=== PATIENT | female | born 1975 | race African-American/Black ===

== ENCOUNTER → 2024-09-24 | Outpatient (CLI) | payer BC ==
[~2024-09-24] VITALS: Ht 177.8 cm; Wt 127.0 kg
[2024-09-24] MEDS: ADENOSINE 107 MG in GIVE UN-DILUTED 0 ML IV STA (10:07)
--- NOTE | 2024-09-24 14:47 | DVHSR ---
APPROVED REPORT Exam: Nuclear Stress Test Indication: Chest pain Stress Tech: Prerna Portillo Ht: 5 ft 10 in Wt: 280 lbs BSA: 2.41 m2 BMI: 40.17 Medical History Medical History: HTN, Obesity , Hyperlipidemia Allergies: No known drug allergies Stress Test Details Stress Test: Pharmacological stress testing performed using 107 mg of Adenosine Reason for pharmacologic stress test: CP. HR Resting HR: 69 bpmMax Heart Rate (APMHR): 174.832740 bpm Max HR Achieved: 115 bpmTarget HR (85% APMHR): 147.991886 bpm % of APMHR: 66.09 Recovery HR: 73 bpm BP Resting BP: 150/75 mmHg Recovery BP: 130/60 mmHg ECG Resting ECG: Sinus Rhythm Clinical Reason for Termination: Completed protocol Nurse Comments Outpatient received from Nuclear Medicine. Patient is A&O x4 and on room air, for VS please see stre ss test assessment documentation. Connected to personnel monitor with VS WNL. See cardio-neuro proced ural notes for addtional details. LT FA 22g AND RAC 22G PIVs flush well. Reviewed POC, patient verb alized understanding, and consents to test. Adenosine stress test performed per protocol. test and turn up technician administered Cardiolite. Pt. to lerated well and all vitals returned to baseline. Patient transferred back to Nuclear Medicine with tech in stable condition. Stress ECG Conclusion marked anterior and inferior ischemia noted normal lvef 60% ecg portion shows PVCs with SR on stress portion abnormal stress showing multiple areas of ischemia NM EXAM: Myocardial Perfusion REST/STRESS Imaging Protocol: Rest Tc-99m/Stress Tc-99m 1 day Resting Data Rest SPECT myocardial perfusion imaging was performed in supine position 60 minutes following the int ravenous injection of 14.5 mCi of Tc-99m Sestamibi. Time of rest injection: 0900 Time of rest imagin Administration Route: IV Administration Site: Right Arm Pharmacologic Stress Pharmacologic stress test was performed by injecting Adenosine mg IV push followed by the intravenou s injection of 34 mCi of Tc-99m Sestamibi. Time of stress injection: 1010 Time of stress imagin Administration Route: IV Administration Site: Left Wrist Gated Stress SPECT was performed 60 minutes after stress injection. The images were gated to evaluate regional wall motion and calculate left ventricular ejection fracti on. Stress only was performed in the Supine position. Nuclear Conclusion Clinical Findings: positive for ischemia Nuclear Findings: positive for ischemia marked anterior and inferior ischemia noted normal lvef 60% ecg portion shows PVCs with SR on stress portion abnormal stress showing multiple areas of ischemia
== END | disposition home or self-care (01) ==
LOC: XYW 08:24
PROVIDERS: ATTEND Internal Medicine
DX: I25.9 Chronic ischemic heart disease, unspecified (principal); R07.9 Chest pain, unspecified
CPT/HCPCS: 78452; 93017; A9500; J0153

== ENCOUNTER 2025-03-13 06:46 | Day surgery (SDC) | payer BC ==
[2025-03-11 10:58] LABS: Hematocrit 40.0 % (36.0-46.0); Hemoglobin 13.3 g/dL (12.2-16.2); Mean Corpuscular Hemoglobin 28.9 pg (28.0-32.0); Mean Corpuscular Volume 86.9 fL (80.0-100.0); Nucleated Red Blood Cells % 0.0 %
[2025-03-11 11:13] LABS: Alanine Aminotransferase 19 U/L (7-40); Albumin 4.1 g/dL (3.2-4.8); Alkaline Phosphatase 99 U/L (46-116); Anion Gap 8 (5-15); BUN/Creatinine Ratio 10.7 (10.0-20.0); Calcium 9.4 mg/dL (8.7-10.4); Carbon Dioxide 28 mmol/L (20-31); Chloride 105 mmol/L (98-107); Glucose 83 mg/dL (74-106); Potassium 3.8 mmol/L (3.5-5.1); Sodium 141 mmol/L (136-145); Total Protein 6.7 g/dL (5.7-8.2)
[2025-03-11 11:14] LABS: Bilirubin, Total 0.4 mg/dL (0.2-1.0)
[2025-03-11 11:16] LABS: Blood Urea Nitrogen 8 mg/dL (9-23); INR 1.01 (0.9-1.15); Partial Thromboplastin Time 28.8 SEC (24.5-34.5); Prothrombin Time 10.7 sec (9.3-11.8)
[~2025-03-13] VITALS: Ht 177.8 cm; Wt 133.4 kg
[~2025-03-13 06:46] MED LIST: ASPI81CH74 PO; ATOR20TA PO; CEPH500C PO; IBUP-1456 PO; LISI30TA8 PO
[2025-03-13] MEDS: IODIXANOL 320MG/ML 100ML BTL IV ONE (07:54)
[2025-03-13] MEDS: ANGIOMAX 250 MG VIAL IV ONE (08:19)
[2025-03-13] MEDS: MIDAZOLAM HCL 2MG/2ML 2ml VIAL (1mg/ml) ONE (08:19)
[2025-03-13] MEDS: VERAPAMIL 2.5MG/ML INJ 2ML VIAL IV ONE (08:19)
[2025-03-13] MEDS: SODIUM CHL 0.9% 0 ML ONE (08:19)
[2025-03-13] MEDS: fentaNYL CITRATE 100 MCG/2 ML VL ONE (08:19)
[2025-03-13] MEDS: HEPARIN SODIUM (PORCINE) 5000 UNITS/ML 1ML VIAL ONE (08:19)
[2025-03-13] MEDS: LIDOCAINE 2%HCL (LOCAL ANESTH.) INJ 20ML MDV ONE (08:20)
[2025-03-13 09:57] VITALS: BP 126/81; PULSE 70; RESP 17; TEMP 98.1; O2SAT 97
--- NOTE | 2025-03-13 10:11 | DVHOP2 ---
Operative Report - 2 Report Details Date: 03/13/25 Preop Diagnosis: CAD Postop Diagnosis: normal coronaries Surgeon: Celeste Mon MD Anesthesiologist: Conscious sedation Anesthesia: Mac, Local Consent: The patient was informed of the risks and benefits of the procedure. These include but are not limited to complications of anesthesia, postoperative infection, incomplete relief of symptoms, recurrence of symptoms, damage to blood vessels, nerves and tendons, deep venous thrombosis, pulmonary embolism and possible need for repeat surgery in the future. Complications: No complications Findings: Normal coronaries Indications for Surgery: Chest pain abnormal stress test Name of Procedure Performed Left heart catheterization. Bilateral cine coronary angiography. Left ventriculography. Procedure Details Procedure Details: Prior local anesthesia with 2% lidocaine to the right wrist and full informed consent obtained the patient was prepped and draped in usual fashion followed by placement of the six Malay sheath into the radial artery followed by check these catheters cannulate both right and left coronary ostia. A multipurpose catheter was used for ventriculography without complications Hemodynamics: Aortic blood pressure was 110/70. End-diastolic pressure was 16. There was no gradient across the aortic valve on pullback. Coronary anatomy. RCA is a large normal vessel. The PDA and posterolateral branches are normal. Left main is large and normal. Left anterior descending is a large vessel with no stenosis in his proximal mid or distal segment. The circumflex is large and free of significant disease. Marginals are normal. Ventriculography shows an EF of about 65% . Impression: Normal left ventricular end-diastolic pressure at rest with normal ejection fraction. No coronary artery disease. Recommendations: Medical therapy is warranted continue with risk factor modification. End of dictation Condition Good Disposition Home Date of Service: Mar 13, 2025 Billing Provider: CELESTE MON Sr., MD Cardiology Common Codes: 47150-LUWEBCN INP/OBS CARE (High) Cardiology Procedure Codes: 83557-FIZO HEART CATH W/INTRA INJ CELESTE MON Sr., MD Mar 13, 2025 10:11
[2025-03-13 10:13] VITALS: BP 118/72; PULSE 65; RESP 18; O2SAT 94
[2025-03-13 10:28] VITALS: BP 122/81; PULSE 67; RESP 16; O2SAT 96
[2025-03-13 10:43] VITALS: BP 123/78; PULSE 62; RESP 16; O2SAT 95
[2025-03-13 11:15] VITALS: BP 125/82; PULSE 67; RESP 16; O2SAT 97
[2025-03-13 11:40] VITALS: BP 118/62; PULSE 69; RESP 18; O2SAT 97
[2025-03-14] MEDS ORDERED: PRED10TA PO (08:44)
== END 2025-03-13 11:53 | disposition home or self-care (01) ==
LOC: CATH 06:46
PROVIDERS: ATTEND Internal Medicine
DX: I25.10 Atherosclerotic heart disease of native coronary artery without angina pectoris (principal); R94.39 Abnormal result of other cardiovascular function study; I10 Essential (primary) hypertension; R07.9 Chest pain, unspecified; Z79.82 Long term (current) use of aspirin; Z79.899 Other long term (current) drug therapy
CPT/HCPCS: 36415; 80053; 84702; 85025; 85610; 85730; 93458; C1760; C1769; C1894; J1644; J2250; J3010; Q9967; 99152; 99153

== ENCOUNTER 2025-03-14 07:46 | Emergency (ER) | payer BC ==
[~2025-03-14] VITALS: Ht 177.8 cm; Wt 133.6 kg
--- NOTE | 2025-03-14 08:32 | ED.PDOC ---
History of Present Illness HPI Comments This is a 49 year old female presenting to the ED with chief complaint of facial swelling. Patient reports that she had an angiogram performed yesterday in [facility] by Dr. Mon. Patient relays that after her procedure, she started to experience right sided facial swelling, redness, itchiness, and warmth. Patient states that her right arm also has been experiencing numbness from where they went in with the catheter. Patient denies any chest pain, SOB, throat swelling, dizziness, fever, or chills. Chief Complaint: Face pain Time Seen by MD: 08:30 Primary Care Provider: ALAN Reviewed Notes: Nurses Notes, Medications, Allergies Allergies: Coded Allergies: NO KNOWN ALLERGIES (Unverified , 09/24/24) Home Meds Active Scripts Prednisone (Prednisone) 10 Mg Tab, 10 MG PO DAILY for 5 Days, #5 MG Prov:BRUCE MARTÍNEZ MD 03/14/25 Reported Medications Ibuprofen (Ibuprofen) 800 Mg Tab, 1 TAB PO Q8HR PRN for MODERATE PAIN (4-6 PAIN SCALE) 03/11/25 Cephalexin Monohydrate (Cephalexin) 500 Mg Cap, 1 CAP PO TID for SPIDER BITE INFECTION 03/11/25 Atorvastatin Calcium (Lipitor) 20 Mg Tab, 1 TAB PO QPM 03/11/25 Lisinopril (Lisinopril) 30 Mg Tab, 1 TAB PO QAM for HYPERTENSION 03/11/25 Aspirin (Aspirin 81 Low Dose) 81 Mg Chw, 1 TAB PO DAILY for HEART ATTACK PREVENTION 03/11/25 Information Source: Patient Mode of Arrival: Ambulatory Severity: Moderate Timing: Hours Duration: Since onset Prehospital treatment: None Past Medical History PAST MEDICAL HISTORY: Denies Surgical History: Cholecystectomy, Hysterectomy Surgical History (Other): Left wrist cyst surgery ACCOUNTING DIRECTOR History: No Pertinent ACCOUNTING DIRECTOR History Family History Family History: Reviewed,noncontributory to illness Social History Smoker: Non-Smoker Alcohol: Denies ETOH Use Drugs: Denies Drug Use Lives In: Home Constitutional: denies: chills, diaphoresis, fatigue, fever, malaise, sweats, weakness, others EENTM: reports: others (Facial swelling); denies: blurred vision, double visio n, ear bleeding, ear discharge, ear drainage, ear pain, ear ringing, eye pain, eye redness, hearing loss, mouth pain, mouth swelling, nasal discharge, nose bleeding, nose congestion, nose pain, photophobia, tearing, throat pain, throat swelling, voice changes Respiratory: denies: cough, hemoptysis, orthopnea, SOB at rest, shortness of breath, SOB with excertion, stridor, wheezing, others Cardiovascular: denies: chest pain, dizzy spells, diaphoresis, Dyspnea on exe rtion, edema, irregular heart beat, left arm pain, lightheadedness, palpitations, PND, syncope, others Gastrointestinal: denies: abdomen distended, abdominal pain, blood streaked bowels, constipated, diarrhea, dysphagia, difficulty swallowing, hematemesis, melena, nausea, poor appetite, poor fluid intake, rectal bleeding, rectal pain, vomiting, others Genitourinary: denies: abnormal vagina bleeding, burning, dyspareunia, dysuria, flank pain, frequency, hematuria, incontinence, pain, , vagina discharge, urgency, others Neurological: denies: dizziness, fainting, headache, left sided numbness, left sided weakness, numbness, paresthesia, pre-existing deficit, right sided numbness, right sided weakness, seizure, speech problems, tingling, tremors, weakness, others Musculoskeletal: denies: back pain, gout, joint pain, joint swelling, muscle pain, muscle stiffness, neck pain, others Integumetry: denies: bruises, change in color, change in hair/nails, dryness, laceration, lesions, lumps, rash, wounds, others Allergic/Immunocompromised: reports: Itching; denies: Difficulty Healing, Frequent Infections, Hives, others Hematologic/Lymphatic: denies: anemia, blood clots, easy bleeding, easy bruising, swollen glands, others Endocrine: denies: excessive hunger, excessive sweating, excessive thirst, excessive urination, flushing, intolerance to cold, intolerance to heat, unexplained weight gain, unexplained weight loss, others Psychiatric: denies: anxiety, bipolar disorder, depression, hopeless, panic disorder, schizophrenia, sleepless, suicidal, others All Other Systems: Reviewed and Negative Physical Exam General Appearance: Moderate Distress, Normal HEENT: Normal ENT Inspection, Pharynx Normal, TMs Normal Neck: Full Range of Motion, Non-Tender, Normal, Normal Inspection Respiratory: Chest Non-Tender, Lungs Clear, No Accessory Muscle Use, No Respiratory Distress, Normal Breath Sounds Cardiovascular: No Edema, No JVD, No Murmur, No Gallop, Normal Peripheral Pulses, Regular Rate/Rhythm Breast Exam: Deferred Gastrointestinal: No Organomegaly, Non Tender, No Pulsatile Mass, Normal Bowel Sounds, Soft Genitalia: Deferred Pelvic: Deferred Rectal: Deferred Extremities: No calf tenderness, Normal capillary refill, Normal inspection, Normal range of motion, Non-tender, No pedal edema Musculoskeletal : Apperance: Normal Neurologic: Alert, filler operator II-XII nml as Tested, No Motor Deficits, Normal Affect, Normal Mood, No Sensory Deficits Cerebellar Function: Normal Reflexes: Normal Skin: Dry, Normal Color, Warm Peripheral Pulses: 3+ Radial (R), 3+ Radial (L) Lymphatic: No Adenopathy Was a procedure done? Was a procedure done?: No Differential Dx Considerations may include: Postprocedure reaction Muscle strain X-Ray, Labs, Meds, VS Vital Signs Date Time Temp Pulse Resp B/P (MAP) Pulse Ox O2 Delivery O2 Flow Rate FiO2 03/14/25 09:42 65 16 98 Room Air* 0 21 03/14/25 08:42 65 16 98 Room Air 03/14/25 08:42 97.6 65 16 127/86 (100) 98 97.6 03/14/25 07:51 97.8 66 18 134/69 98 97.8 Lab Test 03/14/25 08:55 Range/Units Urine Color Light-yellow Yellow Urine Clarity Clear Clear Urine pH 6.0 5.0-9.0 Urine Specific Plummer 1.020 1.001-1.035 Urine Protein Negative Negative Urine Ketones Negative Negative Urine Blood Negative Negative /uL Urine Nitrite Negative Negative Urine Bilirubin Negative Negative Urine Urobilinogen 2 H Negative mg/dL Urine Leukocyte Esterase Negative Negative /uL Urine RBC 2 0 - 4 /hpf Urine Microscopic WBC 1 0-5 /HPF Urine Squamous Epithelial Cells Few <5 /hpf Urine Bacteria Few H None Seen /hpf Urine Mucus Few None Seen Urine Glucose Normal Normal mg/dL Current Medications Medications (Trade) Dose Ordered Sig/Jennifer Route Start Time Stop Time Status Last Admin Methylprednisolone Sodium Succinate (Solu Medrol) 125 mg ONCE ONCE IM 03/14/25 08:30 03/14/25 08:31 DC 03/14/25 09:00 Diphenhydramine HCl (Benadryl Capsule) 50 mg ONCE ONCE PO 03/14/25 10:00 03/14/25 10:01 DC 03/14/25 10:04 Patient alert. Recently had angiogram. Vitals stable. Answering questions. On examination she has good muscle strength. Mild swelling of the right wrist area due to the procedure. Does not seem to be an allergic reaction. Has good airway. No distress. No leg swelling. No shortness a breath. Reviewed her visit to her dining services director. Was given steroid. Was given prescription of prednisone. Explained to the patient. Was told to follow up with her primary care physician. Was told to come back if there is any problem. Chest XR: [address] [address] Ph: [phone] DIAGNOSTIC IMAGING Diagnostic Imaging Report : [id number] Signed PATIENT: DELMA GAVIN ACCT: [id number] UNIT: [id number] : 1975 LOC: ER ROOM / BED: / AGE / SEX: 49 / F ADM STATUS: REG ER SERVICE 9 ORDERING PHYSICIAN: BRUCE MARTÍNEZ MD PROCEDURE(s): CXRP - CHEST PORTABLE REASON: sob ORDER NUMBER(s): [id number], ACCESSION NUMBER(s): [id number] CHEST RADIOGRAPH Indication: sob Technique: Single frontal view of the chest was obtained Comparison: None FINDINGS: Lines and Tubes: None Lungs: No focal consolidation. Pleura: No effusion. No pneumothorax. Cardiomediastinal contours: Unremarkable Bones: No acute osseous abnormality. IMPRESSION: 1. No acute cardiopulmonary disease. ATED BY: LIA BIRMINGHAM MD DICTATED DATE/TIME: 03/14/25852 SIGNED BY: LIA BIRMINGHAM MD SIGNED DATE/TIME: 03/14/25852 CC: Time of 1ST Reevaluation: 09:27 Reevaluation 1ST: Unchanged Patient Education/Counseling: Diagnosis, Treatment Family Education/Counseling: No Family Present SEPSIS Sepsis Screen Date sepsis recognized/suspect: Mar 14, 2025 Time Sepsis recognized/suspect: 0751 Recent Procedure: Yes On Antibiotic Therapy: No Respiratory Rate >20: No Heart Rate >90: No Temp<36 C (96.8 F) or >38.3 C: No SBP <90 or MAP <65 mmHG: No New Acute Mental Status Change: No Is the patient on CPAP, BIPAP,: No Physician Orders Chest Portable (03/14/25 08:30) Vital Signs Date Time Temp Pulse Resp B/P (MAP) Pulse Ox O2 Delivery O2 Flow Rate FiO2 03/14/25 09:42 65 16 98 Room Air* 0 21 03/14/25 08:42 65 16 98 Room Air 03/14/25 08:42 97.6 65 16 127/86 (100) 98 97.6 03/14/25 07:51 97.8 66 18 134/69 98 97.8 Medications Medications Dose Ordered Sig/Jennifer Route Start Time Stop Time Status Last Admin Dose Admin Diphenhydramine HCl 50 mg ONCE ONCE PO 03/14/25 10:00 03/14/25 10:01 DC 03/14/25 10:04 Methylprednisolone Sodium Succinate 125 mg ONCE ONCE IM 03/14/25 08:30 03/14/25 08:31 DC 03/14/25 09:00 Departure 1 Departure Time of Disposition: 08:42 Impression: Primary Impression: Allergic reaction Qualified Codes: T78.40XA - Allergy, unspecified, initial encounter Disposition: HOME / SELF CARE / HOMELESS Condition: Good e-Prescriptions Prednisone (Prednisone) 10 Mg Tab 10 MG PO DAILY for 5 Days, #5 MG Prov: BRUCE MARTÍNEZ MD 03/14/25 Discharged With: Self Critical Care Note Critical Care Time?: No Stability Stability form required: No Heart Score Heart Score: Heart Score Response (Comments) Value History N/A 0 EKG N/A 0 Age N/A 0 Risk Factors N/A 0 Troponin N/A 0 Total 0 I personally scribed for BRUCE MARTÍNEZ MD ([email or web address]) on 03/14/25 at 08:32. Electronically submitted by Kang Baker ([email or web address]). I personally scribed for BRUCE MARTÍNEZ MD ([email or web address]) on 03/14/25 at 09:17. Electronically submitted by Kang Baker ([email or web address]). BRUCE MARTÍNEZ MD Mar 14, 2025 08:32
[2025-03-14] MEDS ORDERED: PRED10TA PO (08:44)
--- NOTE | 2025-03-14 08:55 | DVH ---
CHEST RADIOGRAPH Indication: sob Technique: Single frontal view of the chest was obtained Comparison: None FINDINGS: Lines and Tubes: None Lungs: No focal consolidation. Pleura: No effusion. No pneumothorax. Cardiomediastinal contours: Unremarkable Bones: No acute osseous abnormality. IMPRESSION: 1. No acute cardiopulmonary disease.
[2025-03-14] MEDS: methylPREDNISolone SOD SUCC 125 MG/2 ML VL IM ONE (09:00)
[2025-03-14 09:42] VITALS: PULSE 65; RESP 16; O2SAT 98
[2025-03-14] MEDS: diphenhdrAMINE HCL 25 MG CAP PO ONE (10:04)
[2025-03-14 10:36] LABS: Urine Protein, UAD Negative (Negative)
[2025-03-14 11:41] VITALS: BP 137/78; PULSE 71; RESP 16; TEMP 98.3; O2SAT 96
== END 2025-03-14 11:46 | disposition home or self-care (01) ==
LOC: ER 07:46
DX: T78.40XA Allergy, unspecified, initial encounter (principal); Z98.890 Other specified postprocedural states; Z79.899 Other long term (current) drug therapy; Z88.1 Allergy status to other antibiotic agents; Z90.710 Acquired absence of both cervix and uterus; Z90.49 Acquired absence of other specified parts of digestive tract; X58.XXXA Exposure to other specified factors, initial encounter
CPT/HCPCS: 71045; 81001; 96372; 99284; J2919